=== PATIENT | female | born 1960 | race Caucasian/White ===

== ENCOUNTER → 2021-04-08 13:51 | Outpatient (CLI) | payer BC, SELFPAY ==
--- NOTE | ~2021-04-08 | MR_ITS ---
EXAMINATION: MR brain IAC wo/w con DATE: 04/08/2021 15:09 INDICATION: Sensorineural hearing loss. Left-sided tinnitus. Dizziness. TECHNIQUE: Magnetic resonance imaging (MRI) of the brain, brainstem, and internal auditory canals was performed without and with 17 mm MultiHance intravenous contrast. Sequences included sagittal and ax ial T1-weighted FSE, axial diffusion-weighted FS EPI, axial T2*-weighted GRE, axial T2-weighted FLAIR Propeller, axial T2-weighted Propeller, small ivksq-vb-gadr coronal FIESTA, small mfixx-gv-fsow yoon nal T1-weighted FSE, and small vctac-xu-myyg axial T1-weighted SPGR. Postcontrast sequences included axial T1-weighted FSE, small qywuj-nv-chgl coronal T1-weighted FSE, and small covay-sm-rbzc axial T1- weighted SPGR. Apparent diffusion coefficient (ADC) maps were created. COMPARISON: None. FINDINGS: There is no intracranial hemorrhage or acute infarction. There is a 14 x 8 x 7 mm enhancing mass involving the left internal auditory canal and cerebellopontine angle. The ventricles are doris l in size. The orbits are normal. There is mild mucosal thickening in the paranasal sinuses. The mast oid air cells are normal. IMPRESSION: 1. 14 x 8 x 7 mm mass involving the left internal auditory canal and cerebellopontine angle, consiste nt with a vestibular schwannoma. Reviewed, dictated and finalized at location A. IMPRESSION: 1. 14 x 8 x 7 mm mass involving the left internal auditory canal and cerebellop ontine angle, consistent with a vestibular schwannoma.
[2021-04-08 14:26] LABS: Estimated Glomerular Filt Rate > 60
== END ==
PROVIDERS: Visit Provider Otolaryngology
DX: R22.0 Localized swelling, mass and lump, head (principal); R42 Dizziness and giddiness; H90.42 Sensorineural hearing loss, unilateral, left ear, with unrestricted hearing on the contralateral side
CPT/HCPCS: 70553; A9577

== ENCOUNTER → 2022-08-18 12:45 | Outpatient (CLI) | payer BC, SELFPAY ==
--- NOTE | ~2022-08-18 | MR_ITS ---
EXAMINATION: MR brain IAC wo/w con DATE: 08/18/2022 14:04 INDICATION: Benign neoplasm of cranial nerves. TECHNIQUE: Magnetic resonance imaging (MRI) of the brain, brainstem, and internal auditory canals was performed without and with 17 mL MultiHance intravenous contrast. COMPARISON: Brain MRI 04/08/2021 FINDINGS: There is a focus of increased T2-weighted signal intensity in the right frontal lobe deep w mickey matter, which is normal as an isolated finding. There are changes of left posterior craniotomy. There is an 11 x 3 x 5 mm enhancing mass involving the left internal auditory canal and cerebellopont ine angle. There is enhancement of the nearby dura. There is no acute ischemic infarct. The ventricle s are normal in size. There is mild mucosal thickening in the paranasal sinuses. The orbits are doris l. The mastoid air cells are normal. IMPRESSION: 1. 11 x 3 x 5 mm enhancing mass involving the left internal auditory canal and cerebellopontine angle , decreased from 14 x 8 x 7 mm, consistent with a vestibular schwannoma. Reviewed, dictated and finalized at location A. [employer] IMPRESSION: 1. 11 x 3 x 5 mm enhancing mass involving the left internal auditory canal and cerebellopontine angle, decreased from 14 x 8 x 7 mm, consistent with a vestibu lar schwannoma.
== END ==
PROVIDERS: PCP Orthopaedic Surgery
DX: D33.3 Benign neoplasm of cranial nerves (principal)
CPT/HCPCS: 70553; A9577